=== PATIENT | male | born 1995 | race African-American/Black ===

== ENCOUNTER 2020-09-18 07:25 | Emergency (ER) | payer BC ==
[2020-09-18 07:51] LABS: #Basophils 0.1 thou/uL (0.0-0.2); #Lymphocytes 1.6 thou/uL (1.20-3.40); #Monocytes 0.4 thou/uL (0.11-0.59); %Basophils 0.7 % (0.0-1.0); %Eosinophils 0.2 % (0.0-10.0); %Lymphocytes 19.6 % (21.0-51.0); %Monocytes 5.2 % (0.0-10.0); %Neutrophils 74.3 % (42.0-75.0); Mean Corpuscular HGB CONC 32.7 g/dL (32.0-36.0); Mean Corpuscular Hemoglobin 30.5 pg (27.0-31.0); Mean Corpuscular Volume 93.3 fL (78.0-98.0); Platelet Count 222 thou/uL (130-400); RBC Distribution Width 12.6 % (11.5-14.5); Red Blood Cell (RBC) Count 4.93 mill/uL (4.70-6.10)
[2020-09-18 08:09] LABS: ALT (SGPT) 21 U/L (8-55); AST (SGOT) 17 U/L (5-34); Albumin 4.7 g/dL (3.5-5.0); Alkaline Phosphatase 63 U/L (40-110); Anion Gap 16 mmol/L (10-20); BUN (Urea Nitrogen) 14 mg/dL (8.9-20.6); Bilirubin, Total 2.6 mg/dL (0.2-1.2); Calc. Creatinine Clearance 0 mL/min (70-130); Calcium 9.6 mg/dL (7.8-10.44); Carbon Dioxide 23 mmol/L (22-29); Chloride 104 mmol/L (98-107); Glucose 119 mg/dL (70-105); Potassium 3.3 mmol/L (3.5-5.1); Protein, Total 7.7 g/dL (6.0-8.3); Sodium 140 mmol/L (136-145)
[2020-09-18] MEDS ORDERED: Potassium Chloride 20 MEQ TAB ONE (08:58)
--- NOTE | 2020-09-21 15:39 | EKG ---
Test Reason : SYNCOPE Blood Pressure : / mmHG Vent. Rate : 070 BPM Atrial Rate : 070 BPM P-R Int : 114 ms QRS Dur : 084 ms QT Int : 390 ms P-R-T Axes : 050 093 066 degrees QTc Int : 421 ms Normal sinus rhythm Rightward axis Borderline ECG Confirmed by AMERICO QUIÑONEZ DO ([id number]), editor greeting card MALU BRO ([id number]) on 09/21/2020 3:38:52 PM Referred By: OLAMIDE Confirmed By:AMERICO QUIÑONEZ DO
== END 2020-09-18 09:07 | disposition home or self-care (01) ==
LOC: ERS 07:25
DX: R55 Syncope and collapse (principal); E87.6 Hypokalemia
CPT/HCPCS: 36415; 80053; 85025; 93005